=== PATIENT | female | born 1975 | race African-American/Black ===

== ENCOUNTER 2021-11-21 02:10 | Emergency (ER) | payer OTHER, SELFPAY ==
--- NOTE | ~2021-11-21 | XR_ITS ---
EXAMINATION: XR KNEE, RIGHT CLINICAL INFORMATION: Pain. Trauma. COMPARISON: None TECHNIQUE: Four views of the right knee. FINDINGS: No acute fracture or dislocation. Small tricompartmental marginal osteophytes. Articular surfaces are smooth. No joint effusion. Prominence of the soft tissue shadow anterior to the patellar tendon. XR/XR knee RT 4V IMPRESSION: No acute fracture or dislocation. Small tricompartmental marginal osteophytes. Mild soft tissue swelling anterior to the patella tendon.
[2021-11-21 02:13] VITALS: BMI 34.9
--- NOTE | 2021-11-21 03:48 | ED_ITS ---
HPI - Extremity Injury (Lower) General Chief Complaint: Extremity Injury, Lower Stated Complaint: fall Time Seen by Provider: 11/21/21 02:55 Source: patient Mode of arrival: ambulatory Limitations: no limitations History of Present Illness HPI Narrative: 46-year-old female who presents emergency department for evaluation fall and injuries to both knees that she sustained at work. 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 She states that 2 days prior at around 20:30 hours, she was walking down stairs when she missed the last couple of steps causing herself to fall forward and landing on both knees. She denied any head injury or loss of consciousness. She was able to get up. She states that she was having difficulty walking secondary to pain in her knees. 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 She took some ibuprofen with some relief for pain. She states that the pain is constant but worse with walking and movement specially right leg. Review of Systems Review of Systems: Yes all other systems are reviewed and are negative [facility] Past Medical History [facility] Narrative: Past medical history: None. 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 She denies tobacco, alcohol and drug use. Social History Social History Advance Directives: No Advance Directives Information Provided: Yes Physical Exam Vital Signs: Vital Signs: BMI result Body Mass Index 34.9 Const: Other: Very pleasant and cooperative female patient, does not appear to be in distress, answers all questions appropriately Extrem: Other: Right knee exam: Patient does have tenderness palpation of the right patella and there is no joint effusion. She is able to flex and extend her knee through full range of motion, there is tenderness palpation over the medial and lateral collateral ligaments with no obvious ecchymosis or soft tissue swelling. The patient has a negative anterior and posterior draw sign with no significant pain with lateral stress but does have [id number] pain with medial stress. Her extremities neurovascular intact Left knee examination: Patient does have tenderness palpation over the left patella and there is no joint effusion. She is able to flex extend her left knee through full range of motion. There is no tenderness palpation of the medial or lateral collateral ligaments. There is no obvious ecchymosis or soft tissue swelling noted. She has a negative anterior and posterior draw sign with no pain with medial or lateral stress. Her extremities neurovascular intact. Course Course Course Narrative: 46-year-old female who presents emergency department for evaluation of bilateral knee pain secondary to fall going down stairs at work 2 days prior. The patient's examination is consistent with a contusion and possible sprain of the right knee and contusion of the left knee. At this time I believe the patient can continue to work since she is able to walk without any difficulty. She was advised to continue taking ibuprofen and Tylenol for her pain. She was also advised to use ice to help reduce pain and swelling. The patient will need to follow-up with the [facility] for re-evaluation in 3-5 days. She was given printed and verbal instructions and discharged home. Discharge Plan Discharge Clinical Impression: Work related injury Contusion of knee, right Qualifiers: Encounter type: initial encounter Qualified Code(s): S80.01XA - Contusion of right knee, initial encounter Contusion of left knee Qualifiers: Encounter type: initial encounter Qualified Code(s): S80.02XA - Contusion of left knee, initial encounter Fall Qualifiers: Encounter type: initial encounter Qualified Code(s): W19.XXXA - Unspecified fall, initial encounter Patient Disposition: Home, Self-Care Instructions: Knee Sprain (ED) Additional Instructions: The x-rays of both knees revealed no broken bones/fractures which is reassuring You most likely have a sprain or contusion to your knees from the fall Take ibuprofen 200 mg pills, 3 pills every 6 hours as needed for pain. Take Tylenol (acetaminophen) 500 mg pills, 2 pills every 4 to 6 hours as needed for pain. Follow-up with [facility] on 11/26/2021. Please call them tomorrow to make a follow-up appointment. At this time I do not think that you need any work restrictions but you should apply ice to your knees for 15 minute when you have increased pain, you should do this 4 to 6 times a day as needed pain Please return to the emergency department if your symptoms get worse or if you develop any symptoms that are concerning to you. Referrals: [facility] [Provider Group] - 11/26/21 9:00 am (Bilateral knee contusion/sprain status post fall at work) Interventions: ED Discharge Assessment Last Done: 11/21/21 04:28 Discharge Date/Time: 11/21/21 04:29
== END 2021-11-21 04:29 | disposition home or self-care (01) ==
PROVIDERS: Emergency Provider Emergency Medicine Emergency Medical Services
DX: S80.01XA Contusion of right knee, initial encounter (principal); M25.562 Pain in left knee; M25.561 Pain in right knee; R26.2 Difficulty in walking, not elsewhere classified; W10.9XXA Fall (on) (from) unspecified stairs and steps, initial encounter; Y93.9 Activity, unspecified; Y92.239 Unspecified place in hospital as the place of occurrence of the external cause; Y99.0 Civilian activity done for income or pay
CPT/HCPCS: 73564; 99282; 99283

== ENCOUNTER 2023-09-05 16:00 | Emergency (ER) | payer OTHER, SELFPAY ==
--- NOTE | ~2023-09-05 | US_ITS ---
EXAMINATION: US VENOUS ULTRASOUND WITH DOPPLER LOWER EXTREMITY, BILATERAL CLINICAL INFORMATION: Pain, rule out DVT COMPARISON: None available. COMPARISON: None available. TECHNIQUE: Color-flow triplex imaging with spectral analysis Doppler and compression were performed on the lower extremities. FINDINGS: Respiratory variation, normal compression and vessel patency are noted throughout the lower extremities. The visualized common femoral vein, femoral vein, profunda femoral vein, popliteal vein and midcalf peroneal and posterior tibial venous segments show no evidence of deep vein thrombosis bilaterally. US/US venous duplex LE BI IMPRESSION: No evidence of deep vein thrombosis involving the bilateral lower extremities. .
--- NOTE | 2023-09-05 16:39 | ED.GENADULT ---
HPI - General Adult General Chief complaint: Extremity Injury, Lower Stated complaint: bilateral leg pain, L calf numbness, Diff to walk Time Seen by Provider: 09/05/23 16:19 Source: patient Mode of arrival: ambulatory Limitations: no limitations History of Present Illness HPI narrative: 48-year-old female came in for evaluation of left lower extremity pain for few days, no trauma or injury to the lower extremity, pain started to the left leg now it is bilateral left more than right, pain is localized behind left knee as a throbbing pain radiates up and down to the left leg, no swelling, no recent travel, no prolonged immobilization, no contraception or hormonal replacement therapy. No chest pain, no difficulty breathing. Related Data Allergies Allergy/AdvReac Type Severity Reaction Status Date / Time No Known Allergies Allergy Verified 09/05/23 16:53 Review of Systems Review of Systems: All other systems are reviewed and are negative Constitutional: Reports as per HPI and Reports no additional constitutional complaints Eyes: Reports as per HPI and Reports no additional eye complaints Reports system reviewed and no additional complaints, except as documented Cardiovascular: Reports as per HPI and Reports no additional cardiovascular complaints Respiratory: Reports as per HPI and Reports no additional respiratory complaints Gastrointestinal: Reports as per HPI and Reports no additional gastrointestinal complaints Genitourinary: Reports no additional female genitourinary complaints Musculoskeletal: Reports no additional musculoskeletal complaints Skin/Breast: Reports system reviewed and no additional complaints, except as docu Psychiatric: Reports no additional psychiatric complaints Endocrine: Reports no additional endocrine complaints Hematologic/Lymphatic: Reports no additional hematologic/lymphatic complaints Allergic/Immunologic: Reports no additional allergic/immunologic complaints Reports system reviewed and no additional complaints, except as documented and Reports Abnormal speech present [facility] Social History Social History Advance Directives: Yes Advance Directives Information Provided: No Advance Directives on File: No Do you have a plan to hurt others: No Plan Physical Exam ED Vital Signs: Vital Signs - 24 hr 09/05/23 16:49 Temperature 97.2 F Pulse Rate 90 Respiratory Rate 18 Blood Pressure 122/79 Pulse Oximetry 94 Oxygen Delivery Method Room Air BMI result Body Mass Index 35.3 Vital signs have been reviewed and appear to be correct. Blood pressure elevated. Heart rate normal. Respiratory rate normal. Temperature normal. Oxygen saturation normal. Appearance: Alert. Oriented X3. No acute distress. Head: Normal external exam. Normocephalic. Atraumatic. No Gamino signs noted. No raccoon eyes noted Eyes: PERRLA. EOMI. Conjunctiva and sclera normal. Eyelids normal. ENT: TM's Normal. Pharynx normal. Uvula midline. Moist mucous membranes. No trismus noted. No drooling noted. No muffled voice noted. Neck: Normal inspection. Neck supple. FROM. No adenopathy. Thyroid Normal. No meningeal signs. No neck mass noted. CVS: Normal heart rate and rhythm. Heart sound normal. No murmurs noted. Pulses normal throughout. Respiratory: No respiratory distress. Painless inspiration. Breath sounds normal. No wheezes/rales/rhonchi noted. Chest nontender. No accessory muscle usage noted or decreased air movement noted. Abdomen: Soft and nontender. Bowel sounds normal in all 4 quadrants. No distention noted. No organomegaly noted. No visible injury noted. Back: No CVA tenderness. Full range of motion noted. Skin: Skin warm and dry. Normal skin color. Normal skin turgor. No rashes/lesions/lacerations noted. Extremities: No lower extremity edema. Extremities exhibit normal range of motion. Extremities nontender. Neuro: Oriented X 3. Cranial nerve exam: II-XII are grossly intact No motor deficit. No sensory deficit. Reflexes normal. Course Reevaluation(s) Reevaluation #1: 48-year-old female came in with bilateral lower extremity pain left more than right, history is consistent with likely Mitchell's cyst rupture, no DVT, slight elevation D-dimer, patient has no risk factors for DVT, no recent travel, no recent prolonged immobilization, no OCP. Time: 19:46 Medical Decision Making Differential Diagnosis Differential Diagnoses: The differential diagnosis associated with the presentation includes (DVT, Mitchell cyst, ruptured Mitchell cyst, myofascial pain.) Admission/Observation Consideration of admission/observation: Escalation of care including admission/observation considered Lab Data MDM Lab Attestation statement: I reviewed the patient's lab results. 09/05/23 17:20 09/05/23 17:20 Labs: Lab Results 09/05/23 Range/Units 17:20 WBC 5.4 (4.8-10.8) X10*3/uL RBC 4.63 (4.20-5.50) X10*6/uL Hgb 12.5 (12.0-16.0) g/dl Hct 37.3 (37.0-47.0) % MCV 80.6 (80.0-98.0) fL MCH 27.0 (27.0-33.0) pg MCHC 33.5 (31.0-35.0) g/dl RDW 15.6 (11.0-16.0) % Plt Count 336 (160-400) X10*3/uL MPV 9.6 (9.4-12.3) fL Immature Gran % (Auto) 0.2 (0.0-0.4) % Neut % (Auto) 61.2 (45-73) % Lymph % (Auto) 26.1 (20-40) % [place] % (Auto) 8.6 (2-11) % Eos % (Auto) 3.2 (0-4) % Baso % (Auto) 0.7 (0-2) % Lymph # (Auto) 1.4 (1.2-4.9) X10*3/uL [place] # (Auto) 0.5 (0.1-1.2) X10*3/uL Eos # (Auto) 0.2 (0.0-0.4) X10*3/uL Baso # (Auto) 0.0 (0.0-0.2) X10*3/uL Abs Immat Gran (auto) 0.01 (0.00-0.03) X10*3/uL Absolute Neuts (auto) 3.3 (2.0-8.3) x10*3/uL Absolute Nucleated RBC 0.000 (0.0-0.012) X10*3/uL Nucleated RBC % (auto) 0.0 (0.0-0.2) /100WBC D-Dimer High Sensitivty 262 NG/ML Sodium 139 (135-145) mmol/L Potassium 3.8 (3.3-5.1) mmol/L Chloride 103 (96-108) mmol/L Carbon Dioxide 26 (22-29) mmol/L Anion Gap 14 (12-20) BUN 13 (9-16) mg/dL Creatinine 0.76 (0.5-1.4) mg/dL Estim Creat Clear Calc 101.6 Estimated GFR > 60 Random Glucose 89 (60-115) mg/dL Calcium 9.7 (8.4-10.2) mg/dL Independent Interpretation I performed an independent interpretation of an: Ultrasound (Bilateral ultrasound:No evidence of deep vein thrombosis involving the bilateral lower extremities. .) Radiology Impression Discussion of test interpretation with radiology: I have reviewed the radiologist's reading. Discharge Plan Discharge Clinical Impression: Bilateral myofascial pain Patient Disposition: Home, Self-Care Instructions: Musculoskeletal Pain (ED) Additional Instructions: Take 200 mg ibuprofen tablet and/or Tylenol 500 mg tablet alternate every 6 hours if needed for pain. Apply heating pad to the tender spot. Print Language: [place]
[2023-09-05 16:49] VITALS: BP 122/79; PULSE 90; RESP 18; TEMP 36.2; O2SAT 94; BMI 35.3
[2023-09-05 17:24] LABS: MANUAL DIFF FLAG NO
[2023-09-05 17:26] LABS: Basophils Percent Auto 0.7 % (0-2); Eosinophils Absolute Auto 0.2 X10*3/uL (0.0-0.4); Eosinophils Percent Auto 3.2 % (0-4); Hematocrit 37.3 % (37.0-47.0); Hemoglobin 12.5 g/dl (12.0-16.0); Imm Gran Abs Auto 0.01 X10*3/uL (0.00-0.03); Imm Gran Pct Auto 0.2 % (0.0-0.4); Lymphocytes Absolute Auto 1.4 X10*3/uL (1.2-4.9); Lymphocytes Percent Auto 26.1 % (20-40); Mean Corpuscular HGB Conc 33.5 g/dl (31.0-35.0); Mean Corpuscular Volume 80.6 fL (80.0-98.0); Mean Platelet Volume 9.6 fL (9.4-12.3); Monocytes Absolute Auto 0.5 X10*3/uL (0.1-1.2); Monocytes Percent Auto 8.6 % (2-11); Neutrophils Absolute Auto 3.3 x10*3/uL (2.0-8.3); Neutrophils Percent Auto 61.2 % (45-73); Platelet Count 336 X10*3/uL (160-400); Red Blood Count 4.63 X10*6/uL (4.20-5.50); Red Cell Distribution Width 15.6 % (11.0-16.0); White Blood Count 5.4 X10*3/uL (4.8-10.8)
[2023-09-05 17:39] LABS: D Dimer High Sensitivity 262 NG/ML
[2023-09-05 18:03] LABS: Anion Gap 14 (12-20); Blood Urea Nitrogen 13 mg/dL (9-16); Calcium 9.7 mg/dL (8.4-10.2); Carbon Dioxide 26 mmol/L (22-29); Chloride 103 mmol/L (96-108); Creatinine Clr Calc Pharmacy 101.6; Estimated Glomerular Filt Rate > 60; Glucose Random 89 mg/dL (60-115); Potassium 3.8 mmol/L (3.3-5.1); Sodium 139 mmol/L (135-145)
--- NOTE | 2023-09-05 20:21 | PC.NURSE ---
this patient was not seen by this nurse, the provider saw and discharged the patient.
[2023-09-05 20:22] VITALS: BP 122/79; PULSE 90; RESP 18; TEMP 36.2; O2SAT 94
== END 2023-09-05 20:23 | disposition home or self-care (01) ==
PROVIDERS: Emergency Provider Emergency Medicine; PCP Internal Medicine
DX: M79.18 Myalgia, other site (principal); M79.605 Pain in left leg; M79.604 Pain in right leg
CPT/HCPCS: 36415; 80048; 85025; 85379; 93970; 99282; 99284